=== PATIENT | male | born 1945 | race Caucasian/White ===

== ENCOUNTER → 2018-10-07 | Outpatient (CLI) | payer MEDICARE, OTHER ==
[2018-10-07 13:15] LABS: HCT 44.3 % (39.0-53.0); HGB 14.6 gm/dL (13.0-17.5); MCV 90.9 fL (80.0-100.0); Mean Platelet Volume 7.5; Platelet Count 210 k/uL (150-450); RBC 4.87 m/uL (4.30-5.90); RDW 14.4 % (11.5-15.5); WBC 5.5 k/uL (3.8-10.6)
[2018-10-07 13:42] LABS: Blood Urea Nitrogen 14 mg/dL (9-20); Glucose 92 mg/dL (74-99)
== END | disposition home or self-care (01) ==
LOC: LABPAT 11:46
PROVIDERS: ATTEND Internal Medicine Cardiovascular Disease
DX: Z01.812 Encounter for preprocedural laboratory examination (principal); I48.1 Persistent atrial fibrillation; I35.1 Nonrheumatic aortic (valve) insufficiency
CPT/HCPCS: 82565; 82947; 84132; 84520; 85027

== ENCOUNTER → 2018-10-15 | Day surgery (SDC) | payer MEDICARE, OTHER ==
[2018-10-12 10:41] VITALS: BMI 28.5
[~2018-10-15] MED LIST: ALPRAZolam 0.25 MG TAB PO PRN; ASPIRIN 325 MG TAB PO ONE; ATROPINE SULFATE 0.1 MG/ML 10ML SYRINGE IV ONE; HEPARIN SODIUM 1,000 UN/ML (10ML VL) IV ONE; HEPARIN SODIUM 1,000 UN/ML (10ML VL) ONE; IOPAMIDOL-370 125ML BTL INJ ONE; LIDOCAINE 1% INJ 10MG/ML (20 ML MDV) ONE; LIDOCAINE 1% INJ 10MG/ML (20 ML MDV) SQ ONE; MIDAZOLAM (PF) 2 MG/2 ML VIAL IVP ONE; RX INFO: IV CONTRAST WAS GIVEN 1 EACH MISC MISCELLANE PRN; SODIUM CHLORIDE 0.9% 1,000 ML IV SCH; SODIUM CHLORIDE 0.9% 1,000 ML in EMPTY BAG 1 BAG IV ONE; VERAPAMIL 2.5 MG/ML 2 ML AMP ONE; VERAPAMIL SYRINGE (5 MG/10 ML) INTRAARTER ONE; fentaNYL (PF) 50 MCG/ML 2 ML AMP IVP ONE; fentaNYL (PF) 50 MCG/ML 2 ML AMP ONE
[2018-10-15 08:39] VITALS: RESP 18; TEMP 97.7
[2018-10-15 08:49] LABS: INR 1.2 (<1.2); Prothrombin Time 12.1 sec (9.0-12.0)
--- NOTE | 2018-10-15 10:06 | P.CARDCATH ---
Date of Procedure: 10/15/18 Preoperative Diagnosis: Shortness of breath and positive stress test Postoperative Diagnosis: Normal coronary arteries with mildly calcification. Mildly elevated end- diastolic pressure Procedure(s) Performed: Left heart cath without left ventriculography Description of Procedure: HISTORY: This is a 73-year-old gentleman with history of cardiac arrhythmia and the atrial fibrillation. Currently being maintained in sinus rhythm and also hypertensive cardiac vessel disease with been complaining of exertional shortness of breath. Stress test was size to possible ischemia. Patient is advised to have a cardiac catheterization for definitive diagnosis CONSENT:I have discussed the risks, benefits and alternative therapies for the above-mentioned procedure and for both sedation/analgesia as well as necessary blood product administration, if indicated, as they pertain to this patient. The patient has indicated understanding and acceptance of the risks and procedures discussed. PROCEDURE: Patient was brought to the lab in a fasting state. Patient was given some IV sedation. The right wrist was infiltrated with lidocaine. The right radial artery was entered with a Seldinger technique and a sheath was advanced which is 6-Turkish. A 3.5 bend right [place] catheter was advanced but it was difficult to get into the ascending aorta because of tortuosity of the subclavian artery. It was difficult to engage the right coronary artery. Because of that the procedure was abandoned and Was performed from the right femoral approach. The right groin is infiltrated with lidocaine and right femoral artery was entered using Seldinger technique. A 6-Turkish catheter was left in place and selective coronary arteriography and left ventriculography was performed. Patient tolerated the procedure well. Femoral angiogram was performed and Angio-Seal was applied for hemostasis. No immediate complications were noted and patient was transferred to [facility] in a stable condition Conscious Sedation: Versed 1mg Fentanyl 50 g Duration 27 minutes HEMODYNAMICS:. The aortic pressure was about 110/70. Left ankle end-diastolic pressure is about 16-18. There was no gradient across the aortic valve SELECTIVE CORONARY ARTERIOGRAPHY: LEFT MAIN: Normal length and patent. There is mild calcification of the left main THE LEFT ANTERIOR DESCENDING CORONARY ARTERY: This is a good caliber vessel giving rise to good-sized 2 diagonal branches. The LAD and its branches are free of occlusive disease. There is suggestion of bridging of the mid LAD. The intermediate coronary artery: This is a moderate caliber vessel free of occlusive disease THE LEFT CIRCUMFLEX AND IS CORONARY ARTERY:. This is a dominant vessel giving rise to good-sized PDA. The circumflex_the artery and branches are free of occlusive disease THE RIGHT CORONARY ARTERY: This is a small nondominant vessel free of occlusive disease LEFT VENTRICULOGRAPHY:. Not performed FINAL IMPRESSION:, Normal coronary arteries. Mild calcification left coronary system. Mildly elevated left end-diastolic pressure PLAN: Continues to maximize medical therapy. We'll also add small dose of diuretic. PROGNOSIS: Fair
[2018-10-15 15:06] VITALS: BP 143/65
[2018-10-15 15:09] VITALS: PULSE 62
== END ==
LOC: CATHCVL 08:00
PROVIDERS: ATTEND Internal Medicine Cardiovascular Disease
DX: I25.10 Atherosclerotic heart disease of native coronary artery without angina pectoris (principal); I25.84 Coronary atherosclerosis due to calcified coronary lesion; I11.0 Hypertensive heart disease with heart failure; I50.32 Chronic diastolic (congestive) heart failure; I77.1 Stricture of artery; I48.1 Persistent atrial fibrillation; E78.5 Hyperlipidemia, unspecified; Z79.01 Long term (current) use of anticoagulants; Z79.899 Other long term (current) drug therapy; Z88.0 Allergy status to penicillin
CPT/HCPCS: 93458; 85610; C1760; C1769 ×2; C1894 ×2; J2001; J0461; J3010; J1644; Q9967; J2250

== ENCOUNTER 2018-10-16 02:18 | Emergency (ER) | payer MEDICARE, OTHER ==
[2018-10-16 02:33] VITALS: PULSE 72
--- NOTE | 2018-10-16 02:39 | ED ---
Male Urogenital HPI - General Chief complaint: Urogenital Stated complaint: Male Time Seen by Provider: 10/16/18 02:35 Source: patient Mode of arrival: ambulatory Limitations: no limitations - History of Present Illness Initial comments: Ryan is a 73-year-old gentleman who presents the emergency department this evening for evaluation of inability to urinate. She underwent an elective scheduled cardiac catheterization earlier in the day, patient reports that since the procedure he's been unable to urinate. Patient reports that approximately 12 hours he try to go to sleep but was too uncomfortable. Patient states that he has had a catheter in the past. - Related Data Home Medications Medication Instructions Recorded Confirmed Lisinopril [Zestril] 5 mg PO DAILY 10/12/18 10/16/18 Metoprolol Tartrate [Lopressor] 25 mg PO DAILY 10/12/18 10/16/18 Propafenone [Rythmol] 150 mg PO BID 10/12/18 10/16/18 Simvastatin [Zocor] 40 mg PO HS 10/12/18 10/16/18 Warfarin Sodium [Jantoven] 2.5 mg PO SUWEFR 10/12/18 10/16/18 Warfarin Sodium [Jantoven] 3.75 mg PO MOTUTHSA 10/12/18 10/16/18 Previous Rx's Medication Instructions Recorded Furosemide [Lasix] 40 mg PO DAILY #30 tablet 10/15/18 Potassium Chloride ER [K-Dur 10] 10 meq PO DAILY #30 tab 10/15/18 Allergies Allergy/AdvReac Type Severity Reaction Status Date / Time Penicillins Allergy Unknown Unknown Verified 10/15/18 08:16 Childhood Review of Systems ROS Statement: Those systems with pertinent positive or pertinent negative responses have been documented in the HPI. ROS Other: All systems not noted in ROS Statement are negative. 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 History of Any Multi-Drug Resistant Organisms: None Reported Past Surgical History: Heart Catheterization Additional Past Surgical History / Comment(s): COLONOSCOPIES, SIGMOIDOSCOPY, LEF T HYDROCELE., HEART CATH (2004) Past Anesthesia/Blood Transfusion Reactions: No Reported Reaction Past Psychological History: No Psychological Hx Reported Smoking Status: Never smoker Past Alcohol Use History: Occasional Past Drug Use History: None Reported - Past Family History Father Family Medical History: Cancer Sister(s) Family Medical History: Cancer General Exam Limitations: no limitations General appearance: alert Head exam: Present: atraumatic, normocephalic Eye exam: Present: PERRL Neck exam: Present: full ROM Respiratory exam: Absent: respiratory distress Cardiovascular Exam: Present: regular rate GI/Abdominal exam: Present: tenderness (palpable bladder) exam: Present: other (normal external genitalia) Extremities exam: Present: full ROM Neurological exam: Present: alert, oriented X3 Skin exam: Present: warm, dry, other (right radial and femoral arterial access points, well healing, no significant ecchymosis) Course Vital Signs 10/16/18 10/16/18 02:30 03:29 Temperature 98.4 F 98.2 F Pulse Rate 72 72 Respiratory 20 18 Rate Blood Pressure 163/81 145/73 O2 Sat by Pulse 93 L 95 Oximetry Medical Decision Making - Medical Decision Making She was seen and evaluated history was obtained from patient and This is a 73-year-old gentleman 12 hours of urinary retention after an elective cardiac catheterization procedure Yung Catheter Was Placed Approximately 600 ML of Clear Urine Was Drained Patient Had Complete Resolution of His Discomfort Was Discharged Home with Yung Catheter in Place. Disposition Clinical Impression: Urinary retention Disposition: HOME SELF-CARE Instructions (If sedation given, give patient instructions): Yung Catheter Placement and Care (ED) Is patient prescribed a controlled substance at d/c from ED?: No Referrals: Gregory Okeefe DO [Primary Care Provider] - 1-2 days
[2018-10-16 03:34] VITALS: BP 145/73; RESP 18; TEMP 98.2
== END 2018-10-16 03:34 | disposition home or self-care (01) ==
LOC: EC 02:18
DX: R33.9 Retention of urine, unspecified (principal); I48.91 Unspecified atrial fibrillation; I10 Essential (primary) hypertension; G47.30 Sleep apnea, unspecified; Z99.89 Dependence on other enabling machines and devices; Z95.818 Presence of other cardiac implants and grafts; Z79.01 Long term (current) use of anticoagulants; Z79.899 Other long term (current) drug therapy; Z88.0 Allergy status to penicillin
CPT/HCPCS: 51702; 99283

== ENCOUNTER 2018-10-18 10:56 | Emergency (ER) | payer MEDICARE, OTHER ==
--- NOTE | 2018-10-18 12:12 | ED ---
Recheck HPI - General Chief Complaint: Recheck/Abnormal Lab/Rx Stated Complaint: needs catheter removed Time Seen by Provider: 10/18/18 11:15 Source: patient, RN notes reviewed, old records reviewed Mode of arrival: ambulatory Limitations: no limitations - History of Present Illness Initial Comments: This is a 73-year-old male the ER for evaluation. Patient coming in for evaluation regarding urinary catheter removal. Patient is catheter placed secondary to CABG 3 did receive Yung was unable to urinate and had indwelling Yung placed secondary to retention. Patient denies any significant complaints otherwise MD Complaint: other (Patient requesting catheter removal) -: days(s) Symptoms Since Prior Visit: no new symptoms Context: planned re-check Associated Symptoms: none - Related Data Home Medications Medication Instructions Recorded Confirmed Lisinopril [Zestril] 5 mg PO DAILY 10/12/18 10/18/18 Metoprolol Tartrate [Lopressor] 25 mg PO DAILY 10/12/18 10/18/18 Propafenone [Rythmol] 150 mg PO BID 10/12/18 10/18/18 Simvastatin [Zocor] 40 mg PO HS 10/12/18 10/18/18 Warfarin Sodium [Jantoven] 2.5 mg PO SUWEFR 10/12/18 10/18/18 Warfarin Sodium [Jantoven] 3.75 mg PO MOTUTHSA 10/12/18 10/18/18 Previous Rx's Medication Instructions Recorded Furosemide [Lasix] 40 mg PO DAILY #30 tablet 10/15/18 Potassium Chloride ER [K-Dur 10] 10 meq PO DAILY #30 tab 10/15/18 Allergies Allergy/AdvReac Type Severity Reaction Status Date / Time Penicillins Allergy Unknown Unknown Verified 10/18/18 11:37 Childhood Review of Systems ROS Statement: Those systems with pertinent positive or pertinent negative responses have been documented in the HPI. ROS Other: All systems not noted in ROS Statement are negative. 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 History of Any Multi-Drug Resistant Organisms: None Reported Past Surgical History: Heart Catheterization Additional Past Surgical History / Comment(s): COLONOSCOPIES, SIGMOIDOSCOPY, LEFT HYDROCELE., HEART CATH (2004) Past Anesthesia/Blood Transfusion Reactions: No Reported Reaction Past Psychological History: No Psychological Hx Reported Smoking Status: Never smoker Past Alcohol Use History: Occasional Past Drug Use History: None Reported - Past Family History Father Family Medical History: Cancer Sister(s) Family Medical History: Cancer General Exam Limitations: no limitations General appearance: alert, in no apparent distress Head exam: Present: atraumatic, normocephalic, normal inspection Eye exam: Present: normal appearance, PERRL, EOMI. Absent: scleral icterus, conjunctival injection, periorbital swelling ENT exam: Present: normal exam, mucous membranes moist Neck exam: Present: normal inspection. Absent: tenderness, meningismus, lymphadenopathy Respiratory exam: Present: normal lung sounds bilaterally. Absent: respiratory distress, wheezes, rales, rhonchi, stridor Cardiovascular Exam: Present: regular rate, normal rhythm, normal heart sounds. Absent: systolic murmur, diastolic murmur, rubs, gallop, clicks GI/Abdominal exam: Present: soft, normal bowel sounds. Absent: distended, tenderness, guarding, rebound, rigid Extremities exam: Present: normal inspection, full ROM, normal capillary refill. Absent: tenderness, pedal edema, joint swelling, calf tenderness Back exam: Present: normal inspection Neurological exam: Present: alert, oriented X3, CN II-XII intact Psychiatric exam: Present: normal affect, normal mood Skin exam: Present: warm, dry, intact, normal color. Absent: rash Course Vital Signs 10/18/18 10/18/18 11:10 12:18 Temperature 98.5 F 98.0 F Pulse Rate 75 81 Respiratory 18 16 Rate Blood Pressure 119/69 120/83 O2 Sat by Pulse 97 98 Oximetry - Reevaluation(s) Reevaluation #1: Medical records reviewed Catheter is removed without difficulty Medical Decision Making - Medical Decision Making 73 male the ER for evaluation. Patient resents today for evaluation regarding catheter removal patient has catheter removed and can be discharged home Disposition Clinical Impression: Urinary retention, Encounter for Yung catheter removal Disposition: HOME SELF-CARE Condition: Good Instructions (If sedation given, give patient instructions): Urinary Retention in Men (ED) Is patient prescribed a controlled substance at d/c from ED?: No Referrals: Gregory Okeefe DO [Primary Care Provider] - 1-2 days
[2018-10-18 12:19] VITALS: BP 120/83; PULSE 81; RESP 16; TEMP 98
== END 2018-10-18 12:19 | disposition home or self-care (01) ==
LOC: EC 10:56
DX: Z46.6 Encounter for fitting and adjustment of urinary device (principal); R33.9 Retention of urine, unspecified; I48.91 Unspecified atrial fibrillation; I10 Essential (primary) hypertension; G47.30 Sleep apnea, unspecified; Z99.89 Dependence on other enabling machines and devices; Z79.01 Long term (current) use of anticoagulants; Z79.899 Other long term (current) drug therapy; Z88.0 Allergy status to penicillin; Z95.1 Presence of aortocoronary bypass graft
CPT/HCPCS: 99283

== ENCOUNTER → 2019-09-13 | Outpatient (CLI) | payer MEDICARE, OTHER ==
--- NOTE | 2019-09-13 11:34 | XR ---
EXAMINATION TYPE: XR chest 2V DATE OF EXAM: 09/13/2019 COMPARISON: Prior chest x-ray September 04, 2008. HISTORY: History of breast cancer and atrial fibrillation with increasing shortness of breath over on e year per patient. TECHNIQUE: Frontal and lateral views of the chest are obtained. FINDINGS: There is no focal air space opacity, pleural effusion, or pneumothorax seen. The cardiac silhouette size is upper limits of normal with atherosclerotic and slightly ectatic aorta. The osse ous structures are intact. IMPRESSION: No acute cardiopulmonary process.
== END | disposition home or self-care (01) ==
LOC: RADXRMAIN 11:00
PROVIDERS: ATTEND Family Medicine
DX: R09.02 Hypoxemia (principal); R06.00 Dyspnea, unspecified
CPT/HCPCS: 71046

== ENCOUNTER → 2019-11-09 | Outpatient (CLI) | payer MEDICARE, OTHER | END | disposition home or self-care (01) | LOC: CPPFTMAIN 10:27 | PROVIDERS: ATTEND Internal Medicine Cardiovascular Disease | DX: J44.9 Chronic obstructive pulmonary disease, unspecified (principal); I50.9 Heart failure, unspecified; R94.2 Abnormal results of pulmonary function studies | CPT/HCPCS: 94060; 94726; 94729 ==

== ENCOUNTER → 2020-01-30 | Outpatient (CLI) | payer MEDICARE, OTHER ==
[2020-01-30 11:45] LABS: Basophils % (A) 1 %; Eosinophils # (A) 0.2 k/uL (0-0.7); Eosinophils % (A) 4 %; HCT 43.4 % (39.0-53.0); HGB 13.7 gm/dL (13.0-17.5); Lymphocytes # (A) 0.9 k/uL (1.0-4.8); Lymphocytes % (A) 22 %; MCH 29.4 pg (25.0-35.0); MCHC 31.5 g/dL (31.0-37.0); MCV 93.2 fL (80.0-100.0); Monocytes # (A) 0.3 k/uL (0-1.0); Monocytes % (A) 7 %; Neutrophils # (A) 2.7 k/uL (1.3-7.7); Neutrophils % (A) 65 %; Platelet Count 208 k/uL (150-450); RBC 4.65 m/uL (4.30-5.90); RDW 13.3 % (11.5-15.5); WBC 4.2 k/uL (3.8-10.6)
[2020-01-30 15:49] LABS: African American GFR (CKD) 84.4 (60.0-200.0); Albumin 4.4 g/dL (3.80-4.90); Albumin/Globulin Ratio 2.59 (1.60-3.17); Anion Gap 7.7 mmol/L (4.00-12.00); Calcium 9.5 mg/dL (8.7-10.3); Carbon Dioxide 26.3 mmol/L (21.6-31.8); Chol/HDL Ratio 2.93; Globulin 1.7 g/dL (1.6-3.3); LDL Cholesterol,Calculated 58.4 mg/dL (0.0-131.0); Non-African American GFR(CKD) 72.8 (60.0-200.0); Potassium 5.2 mmol/L (3.5-5.5); Total Bilirubin 0.6 mg/dL (0.2-1.2); Total Protein 6.1 g/dL (6.2-8.2); VLDL Calculation 18.6 mg/dL (5.00-40.00)
== END | disposition home or self-care (01) ==
LOC: LABWHC1 09:55
PROVIDERS: ATTEND Internal Medicine Cardiovascular Disease
DX: I11.0 Hypertensive heart disease with heart failure (principal); I50.32 Chronic diastolic (congestive) heart failure; I48.19 Other persistent atrial fibrillation; I35.1 Nonrheumatic aortic (valve) insufficiency; E03.9 Hypothyroidism, unspecified
CPT/HCPCS: 36415; 80053; 80061; 83880; 85025